=== PATIENT | male | born 1985 | race Caucasian/White ===

== ENCOUNTER 2017-02-13 12:02 | Inpatient (IN) | payer MEDICAID ==
[~2017-02-13] VITALS: Ht 165.1 cm; Wt 85.9 kg
[2017-02-13] MEDS ORDERED: NEU300 PO (12:22)
[2017-02-13] MEDS ORDERED: COUMADIN6 MG PO (12:23)
[2017-02-13] MEDS ORDERED: ZOLOFT25 MG PO (12:23)
[2017-02-13] MEDS ORDERED: KEPPRA500 MG PO (12:23)
[2017-02-13] MEDS ORDERED: COUMADIN5 MG PO (12:24)
[2017-02-13] MEDS ORDERED: LISINOPRIL2.5 MG PO (12:28)
[2017-02-13] MEDS ORDERED: MAPAP325 MG PO (12:28)
[2017-02-13] MEDS ORDERED: MOT600 PO (12:29)
[2017-02-13] MEDS ORDERED: CEPHALEXIN500 M1 PO (12:29)
[2017-02-13] MEDS ORDERED: METFORMIN HCL1000 MG PO (12:30)
[2017-02-13] MEDS ORDERED: ADVIL200 MG PO (12:30)
[2017-02-13 12:38] LABS: BASOPHIL % 0.5 % (0-2); PLATELET COUNT 380 x10^3mcL (130-400); RED CELL DISTRIBUTION WIDTH 13.7 % (11.5-14.5)
[2017-02-13] MEDS ORDERED: LEVEMIR100 U/M1 SQ (12:38)
[2017-02-13] MEDS ORDERED: [UNRECOGNIZED DRUG - CODE] TOP (12:39)
[2017-02-13] MEDS ORDERED: TYLENOL ER PO (12:39)
[2017-02-13] MEDS ORDERED: CORTISONE28 GM TOP (12:40)
[2017-02-13 12:51] LABS: CALCIUM 9.3 mg/dL (8.5-10.1); CARBON DIOXIDE 29.2 mmol/L (21-32); CHLORIDE SERUM 101 mmol/L (98-107); CREATININE SERUM 0.8 mg/dL (0.7-1.3); GFR1 > 60 mL/min; GLUCOSE SERUM 369 mg/dL (74-106); POTASSIUM SERUM 3.9 mmol/L (3.5-5.1); SODIUM SERUM 137 mmol/L (136-145)
[2017-02-13 13:08] LABS: ALBUMIN 3.6 g/dL (3.4-5.0); ALKALINE PHOSPHATASE 85 U/L (46-116); ALT/SGPT 36 U/L (16-63); AST/SGOT 13 U/L (15-37); BILIRUBIN TOTAL 0.42 mg/dL (0.20-1.00)
[2017-02-13 13:11] LABS: TOTAL PROTEIN, SERUM 8.3 g/dL (6.4-8.2)
[2017-02-13 13:46] LABS: microscopic required? NO
[2017-02-13 14:25] LABS: urine erythrocyte NEGATIVE (NEGATIVE)
[2017-02-13 14:26] LABS: AMPHETAMINE QUAL UR NONE DETECTED (NEG <=1000)
[2017-02-13 16:04] LABS: CHOLESTEROL/HDL RATIO 4.6; MAGNESIUM 1.8 mg/dL (1.8-2.4); PHOSPHOROUS 2.7 mg/dL (2.5-4.9)
[2017-02-13 16:15] VITALS: BP 105/79
[2017-02-13 16:20] LABS: T3 TOTAL 1.13 ng/mL
[2017-02-13 16:32] LABS: FREE T4 1.04 ng/dL (0.76-1.46); FREE THYROXINE INDEX 2.9 ug/dL (1.4-4.5); T4(THYROXINE) 8.5 ug/dL (4.7-13.3)
[2017-02-13 21:44] VITALS: BP 113/90
[2017-02-14 06:21] LABS: CALCIUM 8.9 mg/dL (8.5-10.1); CARBON DIOXIDE 28.8 mmol/L (21-32); CHLORIDE SERUM 107 mmol/L (98-107); CREATININE SERUM 0.7 mg/dL (0.7-1.3); GFR1 > 60 mL/min; GLUCOSE SERUM 192 mg/dL (74-106); MAGNESIUM 1.8 mg/dL (1.8-2.4); PHOSPHOROUS 3.9 mg/dL (2.5-4.9); POTASSIUM SERUM 3.9 mmol/L (3.5-5.1); SODIUM SERUM 140 mmol/L (136-145)
[2017-02-14 06:22] LABS: BASOPHIL % 0.8 % (0-2); PLATELET COUNT 326 x10^3mcL (130-400)
[2017-02-14 06:44] VITALS: BP 107/70
[2017-02-14 10:41] VITALS: BP 99/65
[2017-02-14] MEDS ORDERED: AUG500 PO (14:26)
[2017-02-14] MEDS ORDERED: BD LACTINEX1.4 MG PO (14:26)
== END 2017-02-14 15:00 | disposition left against medical advice (07) | DRG 137 ==
LOC: ED 12:02 → DU 14:23
PROVIDERS: Emergency Medicine; ADMIT Family Medicine
DX: J69.0 Pneumonitis due to inhalation of food and vomit (principal); D68.69 Other thrombophilia; E11.42 Type 2 diabetes mellitus with diabetic polyneuropathy; E11.65 Type 2 diabetes mellitus with hyperglycemia; M94.0 Chondrocostal junction syndrome [Tietze]; E78.5 Hyperlipidemia, unspecified; Z79.4 Long term (current) use of insulin; Z68.31 Body mass index [BMI] 31.0-31.9, adult; Z86.711 Personal history of pulmonary embolism; Z79.01 Long term (current) use of anticoagulants; F17.210 Nicotine dependence, cigarettes, uncomplicated; Z79.84 Long term (current) use of oral hypoglycemic drugs; Z86.718 Personal history of other venous thrombosis and embolism
CPT/HCPCS: 82962; 83880; 84439; 90658; J0696; J1644; J1815; J1885; J2543; J3010; J7030; J7620; Q0092; Q9967